=== PATIENT | male | born 1970 | race Caucasian/White ===

== ENCOUNTER 2022-03-02 01:36 | Day surgery (SDC) | payer BC, SELFPAY ==
[2022-02-16 10:15] VITALS: BMI 31.4
--- NOTE | 2022-03-01 10:40 | PM.HPGS ---
History of Present Illness History of Present Illness Consent: Risks, benefits, and alternatives have been discussed and questions answered. Patient agrees to proceed with procedure. Chief complaint: neoplasm screening Narrative: Migel Small is a 51 year old male Referred for colon cancer screening. Review of Systems Review of Systems: All systems reviewed & are unremarkable except as noted in HPI and below PMFSH Social History Social History Living arrangements: with family Spiritual care concerns: No Meds Home Medications and Allergies Home Medications Medication Instructions Recorded Confirmed Type carvedilol 25 mg tablet 25 mg PO BID 02/16/22 02/16/22 History clonazepam 0.5 mg tablet 0.5 mg PO BID PRN Anxiety 02/16/22 02/16/22 History dapagliflozin 10 mg tablet 10 mg PO DAILY 02/16/22 02/16/22 History (Farxiga) divalproex 500 mg tablet,extended 500 mg PO HS 02/16/22 02/16/22 History release 24 hr escitalopram oxalate 20 mg tablet 20 mg PO DAILY 02/16/22 02/16/22 History hydrochlorothiazide 25 mg tablet 25 mg PO DAILY 02/16/22 02/16/22 History losartan 100 mg tablet 100 mg PO DAILY 02/16/22 02/16/22 History sitagliptin phosphate 50 1 tablet PO BID 02/16/22 02/16/22 History mg-metformin 1,000 mg tablet (Janumet) Allergies Allergy/AdvReac Type Severity Reaction Status Date / Time No Known Allergies Allergy Mild Unverified 03/02/22 07:01 Exam Resp: Auscultation: clear to auscultation bilaterally Cardio: Rate: regular rate Rhythm: regular rhythm GI: GI Palp: Yes Soft to palpation and No Tenderness to palpation present (GI) Assessment and Plan Assessment and plan (1) Colon cancer screening: Code(s): Z12.11 - Encounter for screening for malignant neoplasm of colon Status: Acute Assessment and Plan: Colonoscopy with possible biopsy or polypectomy or cautery or injection of substances.
[2022-03-02 07:02] VITALS: BP 99/67; PULSE 69; RESP 18; TEMP 36.1; O2SAT 100
[2022-03-02 07:15] LABS: Glucose Point of Care 129 mg/dl (65-105)
[2022-03-02] MEDS: LACTATED RINGERS 1,000 ML 150 ML IV CONT (07:16)
--- NOTE | 2022-03-02 07:49 | P.PNAN_ITS ---
Anes - Initial Pre Proc Eval Procedure: Operation Date: 03/02/22 08:15 Proposed Procedures p Screening Colonoscopy - Ervin Washington MD Date/Time: 03/02/22 07:49 Surgeon: Ervin Washington MD Pre Op Diagnosis: neoplasm screening Patient Data Age: 51 Gender: M Height: 1.57 m Weight: 78.3 kg Last Vital Signs Temp 97 F L 03/02/22 07:02 Pulse 69 03/02/22 07:02 Resp 18 03/02/22 07:02 BP 99/67 L 03/02/22 07:02 Pulse Ox 100 03/02/22 07:02 O2 Del Method Room Air 03/02/22 07:02 Allergies Allergy/AdvReac Type Severity Reaction Status Date / Time No Known Allergies Allergy Mild Unverified 03/02/22 07:01 Home Medications Medication Instructions Recorded Confirmed Type carvedilol 25 mg tablet 25 mg PO BID 02/16/22 02/16/22 History clonazepam 0.5 mg tablet 0.5 mg PO BID PRN Anxiety 02/16/22 02/16/22 History dapagliflozin 10 mg tablet 10 mg PO DAILY 02/16/22 02/16/22 History (Farxiga) divalproex 500 mg tablet,extended 500 mg PO HS 02/16/22 02/16/22 History release 24 hr escitalopram oxalate 20 mg tablet 20 mg PO DAILY 02/16/22 02/16/22 History hydrochlorothiazide 25 mg tablet 25 mg PO DAILY 02/16/22 02/16/22 History losartan 100 mg tablet 100 mg PO DAILY 02/16/22 02/16/22 History sitagliptin phosphate 50 1 tablet PO BID 02/16/22 02/16/22 History mg-metformin 1,000 mg tablet (Febcammie) Laboratory Tests 03/02/22 07:12 POC Capillary Glucose 129 mg/dl H mg/dl (65-105) Patient hx anesthesia problems: none Family hx anesthesia problems: none Results Review: All pre-operative results and documents have been reviewed as part of the pre- operative evaluation. [facility] Social History Social History Living arrangements: with family Spiritual care concerns: No Anes - Eval Final PreProcedure Day of Procedure 01/20/23 07:49 Patient weight: normal Heart: regular rate and rhythm Lungs: clear to auscultation Airway: Mallampati scale class II Neurological: alert and oriented Last oral intake: >/= 8 hours ASA classification: III Emergent: no Anesthetic plan: proceed Anesthesia type and monitoring: general GIVS and standard monitoring Results Review: All pre-operative results and documents have been reviewed as part of the pre- operative evaluation. Informed Consent: The patient's anesthetic plan and its attendant risks and benefits were discussed with the patient/family/POA. Questions were solicited and answers provided to the satisfaction of the patient/family/POA.
[2022-03-02 08:27] VITALS: BP 84/58; PULSE 64; RESP 21; O2SAT 99
[2022-03-02 08:37] VITALS: BP 86/54; PULSE 62; RESP 24; O2SAT 93
[2022-03-02 08:47] VITALS: BP 86/54; PULSE 62; RESP 24; O2SAT 93
[2022-03-02 08:51] VITALS: BP 94/79; PULSE 60; RESP 18; O2SAT 94
== END 2022-03-02 08:55 | disposition home or self-care (01) ==
PROVIDERS: PCP Internal Medicine; Visit Provider Internal Medicine Gastroenterology
PROC: 0DJD8ZZ Inspection of Lower Intestinal Tract, Via Natural or Artificial Opening Endoscopic (ICD-10-PCS; CPT 45378; principal; 2022-03-02 08:15)
DX: Z12.11 Encounter for screening for malignant neoplasm of colon (principal); K57.30 Diverticulosis of large intestine without perforation or abscess without bleeding; D12.3 Benign neoplasm of transverse colon; Z79.84 Long term (current) use of oral hypoglycemic drugs
CPT/HCPCS: 45385; 82948; 88305; J2704; J7120